=== PATIENT | male | born 1955 | race Caucasian/White ===

== ENCOUNTER 2016-05-20 07:01 | Inpatient (IN) | payer BC ==
[~2016-05-20] VITALS: Ht 175.3 cm; Wt 70.0 kg
[2016-05-20] MEDS ORDERED: IPRATROPIUM (NEB) 0.5 MG/2.5 ML AMP NEB STA (07:05)
[2016-05-20] MEDS ORDERED: ALBUTEROL 0.5% (NEB) 2.5 MG/0.5 ML AMP NEB STA (07:05)
[2016-05-20] MEDS ORDERED: SOD CHLORIDE 0.9% 500 ML IV STA (07:05)
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
[2016-05-20] MEDS ORDERED: ONDANSETRON 4 MG INJ IV STA ×2 (07:29→14:14)
[2016-05-20] MEDS ORDERED: LORAZEPAM 2 MG INJ IV ONE (07:30)
[2016-05-20] MEDS ORDERED: BACLOFEN 10 MG TAB PO ONE (07:30)
[2016-05-20] MEDS ORDERED: BACL20TA PO (07:33)
[2016-05-20] MEDS ORDERED: GABA-526 PO ×2 (07:34)
--- NOTE | 2016-05-20 08:03 | RADRPT ---
PROCEDURE: XR Chest. CLINICAL INDICATION: Chest pain TECHNIQUE: A single AP view of the chest was obtained. COMPARISON: None. FINDINGS: No focal airspace opacification, pleural effusion or pneumothorax is seen. There is left basilar sub segmental atelectasis. The cardiomediastinal silhouette is within normal limits for size. The osseo us structures are unremarkable. IMPRESSION: 1. No radiographic evidence of acute cardiopulmonary disease. 2. Left basilar subsegmental atelectasis. RPTAT: HH .Shauna Hays MD, MD Date Time Electronically viewed and signed by .Shauna Hays MD, MD on 05/20/2016 08:03 .G/
[2016-05-20 08:15] LABS: BASOPHIL # 0.1 10^3/ul (0.0-0.1); BASOPHILS % 0.6 % (0.0-2.0); CONDITION 1; EOSINOPHILS # 0.1 10^3/ul (0.0-0.5); EOSINOPHILS % 1.6 % (0.0-7.0); HEMATOCRIT 39.5 % (42.0-52.0); HEMOGLOBIN 13.3 g/dl (14.0-18.0); LYMPHOCYTES % 34.5 % (15.0-51.0); MEAN CORPUSCULAR HEMOGLOBIN 29.6 pg (29.0-33.0); MEAN CORPUSCULAR HGB CONC 33.7 g/dl (32.0-37.0); MEAN CORPUSCULAR VOLUME 87.7 fl (82.0-101.0); MEAN PLATELET VOLUME 8.7 fl (7.4-10.4); MONOCYTE # 0.7 10^3/ul (0.3-0.9); MONOCYTES % 7.9 % (0.0-11.0); NEUTROPHIL # 4.8 10^3/ul (1.6-7.5); NEUTROPHILS % 55.4 % (39.0-77.0); PLATELET COUNT 273 10^3/UL (140-440); RED CELL DISTRIBUTION WIDTH 13.1 % (11.5-14.5); UNCORRECTED WBC 8.7 10^3/ul (4.8-10.8); WHITE BLOOD COUNT 8.7 10^3/ul (4.8-10.8)
[2016-05-20 08:16] LABS: ALBUMIN 4.1 g/dl (3.3-4.9); CHLORIDE 97 mmol/L (97-110); POTASSIUM 3.6 mmol/L (3.5-5.1); SODIUM 141 mmol/L (135-144)
[2016-05-20 08:18] LABS: BILIRUBIN,INDIRECT 0.4 mg/dl (0-1.1); BILIRUBIN,TOTAL 0.4 mg/dl (0.2-1.3); CREATININE 0.69 mg/dl (0.61-1.24)
[2016-05-20 08:19] LABS: ALANINE AMINOTRANSFERASE 33 IU/L (13-69); ALBUMIN/GLOBULIN RATIO 1.24; ALKALINE PHOSPHATASE 68 IU/L (42-121); ANION GAP 21 (8-16); ASPARTATE AMINO TRANSFERASE 22 IU/L (15-46); BLOOD UREA NITROGEN 13 mg/dl (7-20); CALCIUM 9.2 mg/dl (8.4-10.2); CARBON DIOXIDE 27 mmol/L (21-31); CREATINE KINASE 99 IU/L (23-200); GLUCOSE 95 mg/dl (70-220); TOTAL PROTEIN 7.4 g/dl (6.1-8.1)
[2016-05-20 08:20] LABS: INR 0.99; PROTIME 13.1 Sec (12.2-14.2)
[2016-05-20 08:27] LABS: B-TYPE NATRIURETIC PEPTIDE 58 PG/ML (0-125)
[2016-05-20 08:29] LABS: D-DIMER 495.14 ng/ml (<460)
[2016-05-20 08:30] LABS: CK-MB 1.06 ng/ml (0.0-2.4)
[2016-05-20 08:31] LABS: TROPONIN-I < 0.010 ng/ml (0.00-0.12)
[2016-05-20 08:42] LABS: ADD UMIC YES; URINE BILIRUBIN (Dip) NEGATIVE (NEGATIVE); URINE BLOOD (Dip) TRACE (NEGATIVE); URINE COLOR LT. YELLOW (YELLOW); URINE GLUCOSE (Dip) NEGATIVE (NEGATIVE); URINE KETONES (Dip) 40 (NEGATIVE); URINE LEUKOCYTE ESTERASE (Dip) TRACE (NEGATIVE); URINE NITRITE (Dip) NEGATIVE (NEGATIVE); URINE TOTAL PROTEIN (Dip) NEGATIVE (NEGATIVE); URINE UROBILINOGEN (Dip) 0.2 E.U./dL (0.1-1.0)
[2016-05-20] MEDS ORDERED: ASPIRIN 81 MG TAB PO STA (08:46)
[2016-05-20 08:52] LABS: BACTERIA,URINE RARE; URINE RBCS 0-2 /HPF (0)
[2016-05-20] MEDS ORDERED: IOHEXOL 300MG/ML 150 ML BTL ONE (09:02)
[2016-05-20] MEDS ORDERED: SOD CHLORIDE 0.9% 100 ML ONE (09:02)
--- NOTE | 2016-05-20 09:37 | RADRPT ---
PROCEDURE: CTA Chest with contrast and with 3-D reconstructions CLINICAL INDICATION: Rule out pulmonary emboli TECHNIQUE: The study was performed utilizing multidetector CT scanner. Direct spiral axial section s were obtained from the thoracic inlet to the upper abdomen with the use of intravenous contrast ma terial. Sagittal, coronal and 3-D reformations were obtained. The images were reviewed on a PACS wor kstation. DLP 439.68 mGycm CTDIvol 16.90, 10.69 mGy COMPARISON: No prior studies are available for comparison. FINDINGS: There are no pulmonary emboli. The lungs are clear. There is no pleural fluid. There is no pneumothorax. Heart size is within normal limits. There is no pericardial fluid. The aorta is within normal limi ts. There are no enlarged axillary or mediastinal lymph nodes. The visualized portions of the upper abdomen demonstrate a sub-centimeter hypodensity in the right l obe of the liver which is too small to characterize, but is likely a cyst. Possible cholelithiasis is partially visualized. Linear hyperdensities are noted along the lateral edge of the spleen which is concave from, possibly due to a partial splenectomy. There is bilateral gynecomastia. Degenerative changes of bilateral shoulder joints is partially visu alized including joint space narrowing and subchondral cysts. There is no spinous process in the T3 vertebral body which may be congenital. There are moderate degenerative changes in the thoracic spi ne including degenerative disk disease and prominent lateral osteophytes. IMPRESSION: No CT evidence for pulmonary embolus. The lungs are clear. Possible cholelithiasis is partially visualized. 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 Correlation with surgical history is recommende d. Bilateral gynecomastia. RPTAT: EE Physician Raúl Date Time Electronically viewed and signed by Physician Raúl on 05/20/2016 09:37 /
[2016-05-20] MEDS ORDERED: ACETAMINOPHEN 325 MG TAB PO PRN ×2 (10:30→11:30)
[2016-05-20] MEDS ORDERED: ONDANSETRON 4 MG INJ IV PRN ×2 (10:30→11:30)
[2016-05-20] MEDS ORDERED: MAGNESIUM HYDROXIDE 30ML CUP PO PRN (11:30)
[2016-05-20] MEDS ORDERED: LORAZEPAM 2 MG INJ IV PRN (11:30)
[2016-05-20] MEDS ORDERED: NA PHOSPHATE/BIPHOS 133 ML ENEMA PR PRN (11:30)
[2016-05-20] MEDS ORDERED: DOCUSATE SODIUM 100 MG CAP PO PRN (11:30)
[2016-05-20] MEDS ORDERED: ALBUTEROL/IPRATROPIUM (NEB) 3 ML AMP HHN PRN (11:30)
[2016-05-20] MEDS ORDERED: hydrALAzine 20 MG INJ IV PRN (11:30)
[2016-05-20] MEDS ORDERED: HYDROCODONE/APAP (5/325) TAB PO PRN (11:30)
[2016-05-20] MEDS ORDERED: NACL 0.9% 3 ML SYG IV SCH (11:30)
[2016-05-20] MEDS ORDERED: NITROGLYCERIN (SL) 0.4 MG TAB SL PRN (11:30)
[2016-05-20 12:00] VITALS: TEMP 98.2
[2016-05-20] MEDS ORDERED: GABAPENTIN (50 MG/ML PO SYG) PO SCH ×2 (12:00→16:04)
[2016-05-20] MEDS ORDERED: LEVOFLOXACIN 750MG/D5W (PMX) 150 ML IVPB SCH ×2 (13:00→15:30)
[2016-05-20] MEDS: BACLOFEN 10 MG TAB PO SCH ×2 (14:09→23:06)
[2016-05-20 14:12] LABS: TROPONIN-I < 0.012 ng/ml (0.00-0.12)
[2016-05-20] MEDS ORDERED: morphine 4 MG/ML VIAL IV STA (14:14)
[2016-05-20 14:30] LABS: CK-MB 0.96 ng/ml (0.0-2.4); CREATINE KINASE 104 IU/L (23-200)
--- NOTE | 2016-05-20 14:33 | RADRPT ---
Echocardiogram Report Patient Name: GENNARO TRACY Gender: Male Date: 1955 Study Date: 20-May-2016 Warp Clamper: [facility] Location: [facility] Ref. Physician: SHAKILA JAIN Quality: Adequate Procedures: Transthoracic echocardiogram with complete 2D, M-Mode, and doppler examination. Indications: Chest Pain. 2D/M Mode Doppler Measurement Value Normal Ranges Measurement Value Normal Ranges LVIDd 2D 3.8 3.5 - 5.6 cm AV Peak Jason 1.3 m/sec LVIDs 2D 2.3 2.1 - 4.1 cm AV Peak PG 7.0 mmHg FS 2D 37.8 % LVOT Peak Jason 1.1 m/sec LVPWd 2D 1.0 0.6 - 1.1 cm LVOT Peak PG 5.0 mmHg IVSd 2D 1.0 0.6 - 1.1 cm MV E Peak Jason 0.8 m/sec IVS/LVPW 2D 1.0 MV A Peak Jason 0.8 m/sec AoR Diam 2D 3.2 2.0 - 3.7 cm MV E/A 1.0 LA/Ao 2D 1 0 - 1 MV Decel Time 247 msec EDV 2D 53.2 cm3 MV E/A 1.0 ESV 2D 12.8 cm3 LA Dimen 2D 3.3 2.3 - 4.0 cm Findings Left Ventricle: Normal left ventricular systolic function. Normal left ventricular cavity size. Normal left ventricular wall thickness. Ejection fraction is visually estimated at 65 %. Tissue Doppler/Mitral Doppler indices are consistent with impaired relaxation (Stage I diastolic dysfunction). Right Ventricle: Normal right ventricular size. Normal right ventricular systolic function. Left Atrium: The left atrium is normal in size. Right Atrium: The right atrium is normal in size. Mitral Valve: Mild mitral annular calcification. Trace mitral regurgitation. Aortic Valve: Non coronary cusp appears moderately calcified. Trileaflet aortic valve. Trace aortic valve regurgitation. Tricuspid Valve: Normal appearance and function of the tricuspid valve with trace physiologic regurgitation. Pulmonic Valve: Pulmonic valve not well visualized. There is trace pulmonic regurgitation. Pericardium: Normal pericardium with no significant pericardial effusion. Aorta: Normal aortic root. IVC: Normal size and normal respiratory collapse consistent with normal right atrial pressure. Conclusions 1.Normal left ventricular systolic function. Normal left ventricular cavity size. Normal left ventricular wall thickness. Ejection fraction is visually estimated at 65 %. Tissue Doppler/Mitral Doppler indices are consistent with impaired relaxation (Stage I diastolic dysfunction). 2.Mild mitral annular calcification. Trace mitral regurgitation. 3.Non coronary cusp appears moderately calcified. Trileaflet aortic valve. Trace aortic valve regurgitation. 4.Normal appearance and function of the tricuspid valve with trace physiologic regurgitation. Electronically Signed By: Shawn Rosales 20-May-2016 14:32:48 -0800 Patient Name: GENNARO TRACY Study Date: 20-May-[id number]
[2016-05-20] MEDS: SOD CHLORIDE 0.45% 1,000 ML IV SCH (15:00)
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
[2016-05-20 17:49] LABS: CREATINE KINASE 104 IU/L (23-200)
[2016-05-20 18:07] LABS: TROPONIN-I < 0.010 ng/ml (0.00-0.12)
[2016-05-20] MEDS: morphine 2 MG INJ IV PRN (19:37)
[2016-05-20] MEDS ORDERED: GABAPENTIN 300 MG CAP PO SCH (21:00)
[2016-05-20 22:04] VITALS: PULSE 79
[2016-05-20 22:22] VITALS: Ht 175.3 cm; Wt 70.0 kg
[2016-05-20 22:27] VITALS: BP 109/75; PULSE 86; RESP 20
[2016-05-20] MEDS: HEPARIN 5,000 UNIT/0.5 ML SYG SC SCH (23:06)
[2016-05-21] VITALS (7 sets, daily range): BP systolic 94–103; BP diastolic 57–72; PULSE 62–71; RESP 16–20
[2016-05-21] MEDS: SOD CHLORIDE 0.45% 1,000 ML IV SCH ×2 (00:33→04:18)
[2016-05-21] MEDS: morphine 2 MG INJ IV PRN ×2 (02:08→06:10)
[2016-05-21] MEDS: BACLOFEN 10 MG TAB PO SCH (08:25)
[2016-05-21 08:27] LABS: CHOL/HDL RATIO 4.7 RATIO
[2016-05-21] MEDS: HEPARIN 5,000 UNIT/0.5 ML SYG SC SCH (08:33)
[2016-05-21 08:36] LABS: EOSINOPHILS # 0.4 10^3/ul (0.0-0.5); EOSINOPHILS % 8.6 % (0.0-7.0); HEMATOCRIT 34.5 % (42.0-52.0); HEMOGLOBIN 11.7 g/dl (14.0-18.0); LYMPHOCYTES # 2.4 10^3/ul (0.8-2.9); LYMPHOCYTES % 49.8 % (15.0-51.0); MEAN CORPUSCULAR HEMOGLOBIN 30.3 pg (29.0-33.0); MEAN CORPUSCULAR HGB CONC 33.8 g/dl (32.0-37.0); MEAN CORPUSCULAR VOLUME 89.5 fl (82.0-101.0); MEAN PLATELET VOLUME 8.5 fl (7.4-10.4); MONOCYTE # 0.5 10^3/ul (0.3-0.9); MONOCYTES % 9.5 % (0.0-11.0); NEUTROPHIL # 1.5 10^3/ul (1.6-7.5); NEUTROPHILS % 31.1 % (39.0-77.0); PLATELET COUNT 230 10^3/UL (140-440); RED BLOOD COUNT 3.86 10^6/ul (4.70-6.10); RED CELL DISTRIBUTION WIDTH 13.1 % (11.5-14.5); UNCORRECTED WBC 4.9 10^3/ul (4.8-10.8); WHITE BLOOD COUNT 4.9 10^3/ul (4.8-10.8)
[2016-05-21 08:45] LABS: CONDITION 1
[2016-05-21 08:51] LABS: THYROID STIMULATING HORMONE 6.24 MIU/L (0.465-4.680)
[2016-05-21] MEDS ORDERED: ASPIRIN (EC) 325 MG TAB PO SCH (09:00)
[2016-05-21 09:28] LABS: CREATININE 0.65 mg/dl (0.61-1.24); PHOSPHORUS 3.8 mg/dl (2.5-4.9)
[2016-05-21 09:29] LABS: CALCIUM 8.5 mg/dl (8.4-10.2); MAGNESIUM 1.8 mg/dl (1.7-2.5)
--- NOTE | 2016-05-21 10:35 | PDOCDIS ---
Discharge Instructions CONDITION Patient Condition: Stable HOME CARE INSTRUCTIONS: Diet Instructions: Regular ACTIVITY: Activity Restrictions: Slowly Increase Activity FOLLOW UP/APPOINTMENTS Appointments Please take your medications as prescribed, and see your doctor in the clinic in 1 week. SHAKILA JAIN May 21, 2016 10:35
[2016-05-21] MEDS ORDERED: ALBU8.5H3 INH (10:37)
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
[2016-05-21] MEDS ORDERED: GABAPENTIN 300 MG CAP PO SCH (12:30)
== END 2016-05-21 12:45 | disposition home or self-care (01) | DRG 313 ==
LOC: E/R 07:01 → TEL 10:09
PROVIDERS: ADMIT Family Medicine; ATTEND Family Medicine
DX: R07.9 Chest pain, unspecified (principal); G82.20 Paraplegia, unspecified; N39.0 Urinary tract infection, site not specified; F41.9 Anxiety disorder, unspecified; R06.02 Shortness of breath
CPT/HCPCS: 71010; 71275; 80048; 80053; 80061; 81001; 81003; 82550; 82553; 83036; 83735; 83880; 84100; 84439; 84443; 84484; 85025; 85378; 85610; 85730; 87040; 87086; 93005; 93306; 94644; 94664; 96374; 96375; 96376; J1956; J2060; J2270; J2405; J7040; Q9967